=== PATIENT | male | born 1985 | race Caucasian/White ===

== ENCOUNTER 2022-11-05 22:31 | Observation (INO) ==
[2022-11-05] MEDS ORDERED: ONDANSETRON INJ 2 MG/ML 2 ML VIAL ONE ×2 (22:52→23:34)
[2022-11-05] MEDS ORDERED: LORazepam 2 MG/1 ML VIAL ONE (22:59)
[2022-11-05 23:03] LABS: iSTAT Creatinine 0.9 mg/dl (0.6-1.3); iSTAT Hemoglobin 15.6 g/dl (14.0-18.0); iSTAT Ionized Calcium 0.96 mmol/l (1.12-1.32); iSTAT Potassium 3.1 mmol/L (3.3-5.0)
[2022-11-05 23:32] LABS: Basophils # (auto) 0.01 K/uL (0-0.2); Basophils % (auto) 0.2 %; Eosinophils # (auto) 0.07 K/uL (0-0.50); Eosinophils % (auto) 1.3 %; Hematocrit (blood only) 44.8 % (42.0-52.0); Hemoglobin 15.9 g/dl (14.0-18.0); Immature Granulocytes # (auto) 0.01 K/uL (0.01-0.20); Immature Granulocytes % (auto) 0.2 %; Lymphocytes # (auto) 2.59 K/uL (1.2-3.4); Lymphocytes % (auto) 47.9 %; Mean Corpuscular Hemoglobin 30.3 pg (25.0-34.0); Mean Corpuscular Hgb Conc 35.5 g/dL (32.0-36.0); Mean Corpuscular Volume 85.5 fL (80.0-100.0); Mean Platelet Volume 11.4 fL (9.4-12.4); Monocytes # (auto) 0.39 K/uL (0.11-0.59); Monocytes % (auto) 7.2 %; Neutrophils # (auto) 2.34 K/uL (1.40-6.50); Neutrophils % (auto) 43.2 %; Platelet Count 158 K/uL (130-400); RDW Standard Deviation 37.6 fL (36.4-46.3); Red Blood Count 5.24 M/uL (4.70-6.10); White Blood Count 5.41 K/ul (4.8-10.8)
[2022-11-05] MEDS ORDERED: HYDROmorphone INJ 0.5 MG/0.5 ML SYR IV STA (23:42)
[2022-11-05] MEDS ORDERED: ONDANSETRON INJ 2 MG/ML 2 ML VIAL IV STA (23:42)
[2022-11-05 23:47] LABS: Albumin Globulin Ratio 1.8 (0.9-2); Albumin Level 4.8 gm/dl (3.4-5.0); Bilirubin,Total 0.9 mg/dl (0.2-1.0); Calcium 9.4 mg/dl (8.6-10.3); Creatinine Clr Calc Pharmacy 118.1 ml/min; Est GFR (African American) 122.8 ml/min; Globulin 2.6 gm/dl (2.5-4.0); Potassium 3.1 mmol/L (3.5-5.1); Total Protein 7.4 gm/dl (6.0-8.3)
--- NOTE | 2022-11-05 23:59 | CT Scan Report ---
Exam(s): CT HEAD Without Contrast EXAM: CT Head Without Intravenous Contrast CLINICAL HISTORY: Reason for exam: altered ms. TECHNIQUE: Axial computed tomography images of the head/brain without intravenous contrast. CTDI is 38.17 mGy and DLP is 624.41 mGy-cm. Automated exposure control was utilized for the study. A dose lowering technique was utilized adhering to the principles of ALARA. COMPARISON: No relevant prior studies available. FINDINGS: Brain: Unremarkable. No hemorrhage. No significant white matter disease. No edema. Ventricles: Unremarkable. No ventriculomegaly. Bones/joints: Unremarkable. No acute fracture. Soft tissues: Unremarkable. Sinuses: Unremarkable as visualized. No acute sinusitis. Mastoid air cells: Unremarkable as visualized. No mastoid effusion. IMPRESSION: Normal head/brain CT. Electronically signed by: Dandre Ward MD 11/05/22 23:57 PM
--- NOTE | 2022-11-06 00:27 | Emergency Department Note ---
Impression & Plan Meningitis Admit to the [facility] ED Provider Note NAME: LUZ ELENA GRADY AGE: 37 SEX: M ARRIVES VIA: Walk-In INFORMANT: Patient ED PROVIDER(S): Shadia Tam DO CHIEF COMPLAINT: Altered mental status PLAN: Disposition: Admit to the [facility] Condition: Guarded MEDICAL DECISION MAKING: This is a 37-year-old male patient who presents to the emergency department with an altered mental status. Patient presented with left leg and arm numbness, slurred speech and then altered mental status. Patient then developed significant headache and photophobia while here in the emergency department. Laboratory studies were essentially unremarkable. He had no leukocytosis or anemia. Glucose was stable. He was slightly hypokalemic. CT scan of the brain was unremarkable. However lumbar puncture revealed significantly elevated white blood cell count and total protein. Gram stain revealed no evidence of organisms but there were white blood cells present. Patient was treated with IV vancomycin prophylactically for meningitis. [facility] care. Triage Nursing notes reviewed and agree with them. Additional history obtained from his is at the bedside Vital Signs: reviewed and remarkable for bradycardia Differential diagnosis: CVA, TIA, conversion disorder, tickborne illness, encephalitis, thyroid ER treatment provided: Cardiac monitoring Twelve-lead EKG IV Ativan IV Zofran IV normal saline IV Compazine IV Dilaudid x2 IV vancomycin Diagnostics interpreted by me: ECG: Normal sinus rhythm at [address] segment elevation or signs of ischemia. No ectopy. Cardiac Monitoring: Sinus bradycardia at 51 Laboratory studies: See below Imaging studies: As per stat rad CT scan of the brain: See report HPI: 37/M arrives for evaluation of altered mental status. Patient presents to the ER after complaining of left leg numbness that traveled to his left arm around 6 PM this evening. He then complained of some weakness in his left thumb. He then became nauseated and had an episode of vomiting. His then noticed some slurred speech. His states that he then seen to be confused. She urged him at that time to come to the hospital but he refused. She states that he was extremely stubborn. She denies that he ever had an episode like this in the past. She became more concerned around 9 PM this evening when he seemed more confused and had increased episodes of vomiting. 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 He is and has children. HOME MEDICATIONS:See list ALLERGIES:See list VITALS:See Below PHYSICAL EXAMINATION: HEENT: Head - normocephalic and atraumatic. Pupils are equal, round, and reactive to light. Extraocular eye muscles are intact and sclera are anicteric. Ears - bilaterally patent canals with noninjected tympanic membranes and no evidence of hemotympanum. Nose - moist nasal mucosa without discharge. Mouth - moist buccal mucosa. Oropharynx is nonerythematous and there is no tonsillar exudate or edema noted. Neck: Supple; no nuchal rigidity or cervical lymphadenopathy Heart: Regular rate and rhythm. There is a normal S1 and S2 with no murmurs, clicks, or gallops appreciated. Lungs: Clear to auscultation bilaterally with no wheezes, rales, or rhonchi. Abdomen: Soft, completely nontender, nondistended, with good bowel sounds. There are no palpable pulsatile masses or hepatosplenomegaly. There is no guarding, rigidity, or rebound noted. Extremities: No evidence of cyanosis, clubbing, or edema. There are easily palpable peripheral pulses. Neuro:The patient is awake but disoriented. Muscle strength is 5/5 in all 4 extremities. The patient has equal machine adjuster helper strength and equal pedal push and pull. There are no cerebellar signs. ED COURSE: Times/Reassessments: 2250 the patient was evaluated in room B3. A complete history and physical was performed. An IV lock was initiated and labs are drawn as above. Patient was given a dose of IV Zofran. Patient received a dose of IV Ativan to facilitate CT scan of the brain. An order was placed for continuous cardiac monitoring. The patient was in a sinus bradycardia at a rate of 51. A twelve-lead EKG was obtained as described above. Patient was bolused with IV normal saline solution. Patient continued with significant nausea and was given a dose of IV Compazine. I kept the patient's abreast of the situation. He was given a dose of IV Dilaudid for the severe headache. He underwent lumbar puncture Lumbar Puncture Indication: Altered mental status. Verbal consent was obtained after the risks and benefits were explained, including but not limited to headache, bleeding/clotting, infection, pain, and bone/joint/nerve damage. At this time, the risks of the procedure are less than the risks of NOT performing the procedure. A time out was taken and the correct patient and site identified. The patient was placed sitting upright over a tray table and the back was prepped with betadine and draped in the standard fashion. The L3 intervertebral space was identified, anesthetized locally with 1% lido alex without epinephrine, and the spinal needle was inserted through the skin with the bevel parallel to the dural fibers. The needle was carefully advanced into the lumbar cistern and 4 tubes of clear CSF was obtained. The stylet was replaced and the needle was removed. A bandaid was placed and the patient was placed in the supine position. The patient tolerated the procedure well and there were no complications. Patient continued to complain of pain and was given a second dose of IV Dilaudid . Once preliminary results returned from the lumbar puncture, the patient was given a dose of IV vancomycin. [facility] for further inpatient care. Shadia Tam, DO Past Med/Surg History Social History Smoking Status: Never smoker Hx Alcohol Use: No Hx Substance Use: No Preferred Language: [place] Communication Ability: Effective Turner Machine Required: No Beliefs That Will Affect Care: None Current Living Situation: Spouse Current Living Situation Comment: split level Other Information That Helps Us Care for You: No Feels Safe at Home: Yes Safety Concerns: Feels Safe At This Time Assistive Devices: None Allergies Allergies Allergy/AdvReac Type Severity Reaction Status Date / Time No Known Allergies Allergy Unverified 11/05/22 23:12 Home Meds Home Medications Medication Instructions Recorded Confirmed acetaminophen 500 mg tablet 1,000 mg PO Q6H PRN .headaches/pain 11/05/22 11/05/22 (Tylenol Extra Strength) aspirin 325 mg tablet 650 mg PO BID PRN .headache/pain 11/05/22 11/05/22 cholecalciferol (vitamin D3) 25 0 mcg PO DAILY 11/05/22 11/05/22 mcg (1,000 unit) tablet (Vitamin D3) multivitamin 1 tab PO DAILY 11/05/22 11/05/22 naproxen sodium 220 mg tablet 220 - 440 mg PO BID PRN 11/05/22 11/05/22 (Aleve) .headache/pain sertraline 50 mg tablet 50 mg PO QAM 11/05/22 11/05/22 Results & Data (ED) Vital Signs Vital Signs - 24 hr 11/05/22 22:55 11/05/22 23:13 11/05/22 23:26 Temperature 36.7 C Temperature Source Temporal Artery Scan Pulse Rate 85 Pulse Rate [Apical] 77 Pulse Rate from SpO2 Sensor Pulse Rhythm Regular Pulse Strength Normal Respiratory Rate 13 15 Respiratory Effort / Characteristics Non-Labored Spontaneous Respiratory Depth Normal Normal Respiratory Pattern Regular Blood Pressure 138/66 Blood Pressure [Left Arm] 133/86 Blood Pressure Mean 90 Blood Pressure Mean [Left Arm] 101 Blood Pressure Position [Left Arm] Pulse Oximetry 99 100 100 Oxygen Delivery Method Room Air Room Air Nasal Cannula Oxygen Flow Rate 4 Sepsis Recent Fever Within 48 Hours No Sepsis New/Unexplained Change in Mental Status No Sepsis Action Taken by Nursing No Action Required 11/05/22 23:32 11/05/22 23:13 11/05/22 23:30 Temperature Temperature Source Pulse Rate 69 65 80 Pulse Rate [Apical] Pulse Rate from SpO2 Sensor 68 Pulse Rhythm Pulse Strength Respiratory Rate 22 15 Respiratory Effort / Characteristics Respiratory Depth Respiratory Pattern Blood Pressure 133/86 126/78 Blood Pressure [Left Arm] Blood Pressure Mean 101 94 Blood Pressure Mean [Left Arm] Blood Pressure Position [Left Arm] Pulse Oximetry 100 Oxygen Delivery Method Oxygen Flow Rate Sepsis Recent Fever Within 48 Hours Sepsis New/Unexplained Change in Mental Status Sepsis Action Taken by Nursing 11/06/22 00:00 11/06/22 01:00 11/06/22 00:30 Temperature Temperature Source Pulse Rate 51 L 84 Pulse Rate [Apical] 76 Pulse Rate from SpO2 Sensor 52 L 80 Pulse Rhythm Pulse Strength Respiratory Rate 14 15 14 Respiratory Effort / Characteristics Respiratory Depth Normal Respiratory Pattern Blood Pressure 120/65 132/78 Blood Pressure [Left Arm] 124/74 Blood Pressure Mean 83 96 Blood Pressure Mean [Left Arm] 90 Blood Pressure Position [Left Arm] Pulse Oximetry 100 96 99 Oxygen Delivery Method Nasal Cannula Room Air Oxygen Flow Rate 4 Sepsis Recent Fever Within 48 Hours Sepsis New/Unexplained Change in Mental Status Sepsis Action Taken by Nursing 11/06/22 01:00 11/06/22 01:30 11/06/22 01:55 Temperature Temperature Source Pulse Rate 70 67 72 Pulse Rate [Apical] Pulse Rate from SpO2 Sensor 70 67 70 Pulse Rhythm Pulse Strength Respiratory Rate 15 17 20 Respiratory Effort / Characteristics Respiratory Depth Respiratory Pattern Blood Pressure 124/74 129/72 118/78 Blood Pressure [Left Arm] Blood Pressure Mean 90 91 91 Blood Pressure Mean [Left Arm] Blood Pressure Position [Left Arm] Pulse Oximetry 99 96 95 Oxygen Delivery Method Oxygen Flow Rate Sepsis Recent Fever Within 48 Hours Sepsis New/Unexplained Change in Mental Status Sepsis Action Taken by Nursing 11/06/22 03:24 11/06/22 03:25 11/06/22 03:24 Temperature Temperature Source Pulse Rate 78 Pulse Rate [Apical] 87 Pulse Rate from SpO2 Sensor Pulse Rhythm Pulse Strength Respiratory Rate 18 Respiratory Effort / Characteristics Respiratory Depth Respiratory Pattern Blood Pressure 109/54 L Blood Pressure [Left Arm] 109/54 L Blood Pressure Mean 72 Blood Pressure Mean [Left Arm] 72 Blood Pressure Position [Left Arm] Lying Pulse Oximetry 92 Oxygen Delivery Method Room Air Oxygen Flow Rate Sepsis Recent Fever Within 48 Hours Sepsis New/Unexplained Change in Mental Status Sepsis Action Taken by Nursing 11/06/22 03:24 Temperature Temperature Source Pulse Rate 84 Pulse Rate [Apical] Pulse Rate from SpO2 Sensor Pulse Rhythm Pulse Strength Respiratory Rate 19 Respiratory Effort / Characteristics Respiratory Depth Respiratory Pattern Blood Pressure Blood Pressure [Left Arm] Blood Pressure Mean Blood Pressure Mean [Left Arm] Blood Pressure Position [Left Arm] Pulse Oximetry 97 Oxygen Delivery Method Room Air Oxygen Flow Rate Sepsis Recent Fever Within 48 Hours Sepsis New/Unexplained Change in Mental Status Sepsis Action Taken by Nursing Laboratory Data 11/05/22 22:41 11/05/22 22:41 Lab Results 11/05/22 11/05/22 11/05/22 Range/Units 22:41 22:41 22:41 WBC 5.41 (4.8-10.8) K/ul RBC 5.24 (4.70-6.10) M/uL Hgb 15.9 (14.0-18.0) g/dl POC Hgb (14.0-18.0) g/dl Hct 44.8 (42.0-52.0) % POC Hct (42-52) % MCV 85.5 (80.0-100.0) fL MCH 30.3 (25.0-34.0) pg MCHC 35.5 (32.0-36.0) g/dL RDW Std Deviation 37.6 (36.4-46.3) fL RDW Coeff of Rosita 12.0 (11.5-14.5) % Plt Count 158 (130-400) K/uL MPV 11.4 (9.4-12.4) fL Immature Gran % (Auto) 0.2 % Neut % (Auto) 43.2 % Lymph % (Auto) 47.9 % [place] % (Auto) 7.2 % Eos % (Auto) 1.3 % Baso % (Auto) 0.2 % Neut # (Auto) 2.34 (1.40-6.50) K/uL Lymph # (Auto) 2.59 (1.2-3.4) K/uL [place] # (Auto) 0.39 (0.11-0.59) K/uL Eos # (Auto) 0.07 (0-0.50) K/uL Baso # (Auto) 0.01 (0-0.2) K/uL Immature Gran # (Auto) 0.01 (0.01-0.20) K/uL POC Sodium (135-144) mmol/L Sodium 140 (136-145) mmol/L POC Potassium (3.3-5.0) mmol/L Potassium 3.1 L (3.5-5.1) mmol/L POC Chloride (101-112) mmol/L Chloride 104 (98-107) mmol/L Carbon Dioxide 24 (21-32) mmol/L POC Total CO2 (24-31) mmol/L Anion Gap 12 H (3-11) POC Anion Gap (16-25) mmol/L POC BUN (7-18) mg/dl BUN 13 (6-23) mg/dl Creatinine 0.93 (0.6-1.4) mg/dl POC Creatinine (0.6-1.3) mg/dl Est Cr Clr Drug Dosing 118.1 ml/min Est GFR ( Amer) 122.8 ml/min Est GFR (Non-Af Amer) 106.0 ml/min BUN/Creatinine Ratio 14.0 (10-20) Glucose 128 H (70-99(Fasting)) mg/dl POC Glucose (70-99) mg/dl POC Glucose (other) (70-99) mg/dl Calcium 9.4 (8.6-10.3) mg/dl POC Ioniz Calcium Susy (1.12-1.32) mmol/l Total Bilirubin 0.9 (0.2-1.0) mg/dl AST 20 (13-39) U/L ALT 21 (7-52) U/L Alkaline Phosphatase 45 (34-104) U/L Total Protein 7.4 (6.0-8.3) gm/dl Albumin 4.8 (3.4-5.0) gm/dl Globulin 2.6 (2.5-4.0) gm/dl Albumin/Globulin Ratio 1.8 (0.9-2) TSH (0.300-4.500) uIu/ml Fluid Comment CSF Appearance CSF Color Xanthrochromic CSF WBC (0-5) CSF RBC (0-) CSF Cell Count Tube # CSF Mononuclear WBCs % % CSF Polynuclear WBCs % % CSF Chemistry Tube # CSF Glucose (40-70) mg/dl CSF Total Protein (15-45) mg/dl CSF C.neoform/gat PCR (NotDetected) CSF CMV DNA (PCR) (NotDetected) CSF Enterovirus (PCR) (NotDetected) CSF E. coli K1 (PCR) (NotDetected) CSF H. influenzae (PCR) (NotDetected) CSF HSV I (PCR) (NotDetected) CSF HSV II (PCR) (NotDetected) CSF HHV 6 (PCR) (NotDetected) CSF L.monocytogenes PCR (NotDetected) CSF N. meningitidis PCR (NotDetected) CSF Parechovirus (PCR) (NotDetected) CSF S. agalactiae (PCR) (NotDetected) CSF S. pneumoniae (PCR) (NotDetected) CSF VZV DNA (PCR) (NotDetected) Ethyl Alcohol mg/dL (<10.0) mg/dl Lyme Disease IgG Ab Negative (Negative) Lyme Disease IgM Ab Negative (Negative) SARS-CoV-2, RNA, NAAT (NEGATIVE) 11/05/22 11/05/22 11/05/22 Range/Units 22:41 22:41 22:47 WBC (4.8-10.8) K/ul RBC (4.70-6.10) M/uL Hgb (14.0-18.0) g/dl POC Hgb (14.0-18.0) g/dl Hct (42.0-52.0) % POC Hct (42-52) % MCV (80.0-100.0) fL MCH (25.0-34.0) pg MCHC (32.0-36.0) g/dL RDW Std Deviation (36.4-46.3) fL RDW Coeff of Rosita (11.5-14.5) % Plt Count (130-400) K/uL MPV (9.4-12.4) fL Immature Gran % (Auto) % Neut % (Auto) % Lymph % (Auto) % [place] % (Auto) % Eos % (Auto) % Baso % (Auto) % Neut # (Auto) (1.40-6.50) K/uL Lymph # (Auto) (1.2-3.4) K/uL [place] # (Auto) (0.11-0.59) K/uL Eos # (Auto) (0-0.50) K/uL Baso # (Auto) (0-0.2) K/uL Immature Gran # (Auto) (0.01-0.20) K/uL POC Sodium (135-144) mmol/L Sodium (136-145) mmol/L POC Potassium (3.3-5.0) mmol/L Potassium (3.5-5.1) mmol/L POC Chloride (101-112) mmol/L Chloride (98-107) mmol/L Carbon Dioxide (21-32) mmol/L POC Total CO2 (24-31) mmol/L Anion Gap (3-11) POC Anion Gap (16-25) mmol/L POC BUN (7-18) mg/dl BUN (6-23) mg/dl Creatinine (0.6-1.4) mg/dl POC Creatinine (0.6-1.3) mg/dl Est Cr Clr Drug Dosing ml/min Est GFR ( Amer) ml/min Est GFR (Non-Af Amer) ml/min BUN/Creatinine Ratio (10-20) Glucose (70-99(Fasting)) mg/dl POC Glucose 122 H (70-99) mg/dl POC Glucose (other) (70-99) mg/dl Calcium (8.6-10.3) mg/dl POC Ioniz Calcium Susy (1.12-1.32) mmol/l Total Bilirubin (0.2-1.0) mg/dl AST (13-39) U/L ALT (7-52) U/L Alkaline Phosphatase (34-104) U/L Total Protein (6.0-8.3) gm/dl Albumin (3.4-5.0) gm/dl Globulin (2.5-4.0) gm/dl Albumin/Globulin Ratio (0.9-2) TSH 2.502 (0.300-4.500) uIu/ml Fluid Comment CSF Appearance CSF Color Xanthrochromic CSF WBC (0-5) CSF RBC (0-) CSF Cell Count Tube # CSF Mononuclear WBCs % % CSF Polynuclear WBCs % % CSF Chemistry Tube # CSF Glucose (40-70) mg/dl CSF Total Protein (15-45) mg/dl CSF C.neoform/gat PCR (NotDetected) CSF CMV DNA (PCR) (NotDetected) CSF Enterovirus (PCR) (NotDetected) CSF E. coli K1 (PCR) (NotDetected) CSF H. influenzae (PCR) (NotDetected) CSF HSV I (PCR) (NotDetected) CSF HSV II (PCR) (NotDetected) CSF HHV 6 (PCR) (NotDetected) CSF L.monocytogenes PCR (NotDetected) CSF N. meningitidis PCR (NotDetected) CSF Parechovirus (PCR) (NotDetected) CSF S. agalactiae (PCR) (NotDetected) CSF S. pneumoniae (PCR) (NotDetected) CSF VZV DNA (PCR) (NotDetected) Ethyl Alcohol mg/dL < 10.0 (<10.0) mg/dl Lyme Disease IgG Ab (Negative) Lyme Disease IgM Ab (Negative) SARS-CoV-2, RNA, NAAT (NEGATIVE) 11/05/22 11/06/22 11/06/22 Range/Units 22:51 01:50 01:50 WBC (4.8-10.8) K/ul RBC (4.70-6.10) M/uL Hgb (14.0-18.0) g/dl POC Hgb 15.6 (14.0-18.0) g/dl Hct (42.0-52.0) % POC Hct 46 (42-52) % MCV (80.0-100.0) fL MCH (25.0-34.0) pg MCHC (32.0-36.0) g/dL RDW Std Deviation (36.4-46.3) fL RDW Coeff of Rosita (11.5-14.5) % Plt Count (130-400) K/uL MPV (9.4-12.4) fL Immature Gran % (Auto) % Neut % (Auto) % Lymph % (Auto) % [place] % (Auto) % Eos % (Auto) % Baso % (Auto) % Neut # (Auto) (1.40-6.50) K/uL Lymph # (Auto) (1.2-3.4) K/uL [place] # (Auto) (0.11-0.59) K/uL Eos # (Auto) (0-0.50) K/uL Baso # (Auto) (0-0.2) K/uL Immature Gran # (Auto) (0.01-0.20) K/uL POC Sodium 141 (135-144) mmol/L Sodium (136-145) mmol/L POC Potassium 3.1 L (3.3-5.0) mmol/L Potassium (3.5-5.1) mmol/L POC Chloride 103 (101-112) mmol/L Chloride (98-107) mmol/L Carbon Dioxide (21-32) mmol/L POC Total CO2 23 L (24-31) mmol/L Anion Gap (3-11) POC Anion Gap 20.0 (16-25) mmol/L POC BUN 12 (7-18) mg/dl BUN (6-23) mg/dl Creatinine (0.6-1.4) mg/dl POC Creatinine 0.9 (0.6-1.3) mg/dl Est Cr Clr Drug Dosing ml/min Est GFR ( Amer) ml/min Est GFR (Non-Af Amer) ml/min BUN/Creatinine Ratio (10-20) Glucose (70-99(Fasting)) mg/dl POC Glucose (70-99) mg/dl POC Glucose (other) 133 H (70-99) mg/dl Calcium (8.6-10.3) mg/dl POC Ioniz Calcium Susy 0.96 L (1.12-1.32) mmol/l Total Bilirubin (0.2-1.0) mg/dl AST (13-39) U/L ALT (7-52) U/L Alkaline Phosphatase (34-104) U/L Total Protein (6.0-8.3) gm/dl Albumin (3.4-5.0) gm/dl Globulin (2.5-4.0) gm/dl Albumin/Globulin Ratio (0.9-2) TSH (0.300-4.500) uIu/ml Fluid Comment CSF Appearance Clear CSF Color Colorless Xanthrochromic No xanthochromia CSF WBC 162 H* (0-5) CSF RBC 3 (0-) CSF Cell Count Tube # 3 CSF Mononuclear WBCs % 100 % CSF Polynuclear WBCs % 0 % CSF Chemistry Tube # CSF Glucose (40-70) mg/dl CSF Total Protein (15-45) mg/dl CSF C.neoform/gat PCR Not Detected (NotDetected) CSF CMV DNA (PCR) Not Detected (NotDetected) CSF Enterovirus (PCR) Not Detected (NotDetected) CSF E. coli K1 (PCR) Not Detected (NotDetected) CSF H. influenzae (PCR) Not Detected (NotDetected) CSF HSV I (PCR) Not Detected (NotDetected) CSF HSV II (PCR) Not Detected (NotDetected) CSF HHV 6 (PCR) Not Detected (NotDetected) CSF L.monocytogenes PCR Not Detected (NotDetected) CSF N. meningitidis PCR Not Detected (NotDetected) CSF Parechovirus (PCR) Not Detected (NotDetected) CSF S. agalactiae (PCR) Not Detected (NotDetected) CSF S. pneumoniae (PCR) Not Detected (NotDetected) CSF VZV DNA (PCR) Not Detected (NotDetected) Ethyl Alcohol mg/dL (<10.0) mg/dl Lyme Disease IgG Ab (Negative) Lyme Disease IgM Ab (Negative) SARS-CoV-2, RNA, NAAT (NEGATIVE) 11/06/22 11/06/22 Range/Units 01:50 04:19 WBC (4.8-10.8) K/ul RBC (4.70-6.10) M/uL Hgb (14.0-18.0) g/dl POC Hgb (14.0-18.0) g/dl Hct (42.0-52.0) % POC Hct (42-52) % MCV (80.0-100.0) fL MCH (25.0-34.0) pg MCHC (32.0-36.0) g/dL RDW Std Deviation (36.4-46.3) fL RDW Coeff of Rosita (11.5-14.5) % Plt Count (130-400) K/uL MPV (9.4-12.4) fL Immature Gran % (Auto) % Neut % (Auto) % Lymph % (Auto) % [place] % (Auto) % Eos % (Auto) % Baso % (Auto) % Neut # (Auto) (1.40-6.50) K/uL Lymph # (Auto) (1.2-3.4) K/uL [place] # (Auto) (0.11-0.59) K/uL Eos # (Auto) (0-0.50) K/uL Baso # (Auto) (0-0.2) K/uL Immature Gran # (Auto) (0.01-0.20) K/uL POC Sodium (135-144) mmol/L Sodium (136-145) mmol/L POC Potassium (3.3-5.0) mmol/L Potassium (3.5-5.1) mmol/L POC Chloride (101-112) mmol/L Chloride (98-107) mmol/L Carbon Dioxide (21-32) mmol/L POC Total CO2 (24-31) mmol/L Anion Gap (3-11) POC Anion Gap (16-25) mmol/L POC BUN (7-18) mg/dl BUN (6-23) mg/dl Creatinine (0.6-1.4) mg/dl POC Creatinine (0.6-1.3) mg/dl Est Cr Clr Drug Dosing ml/min Est GFR ( Amer) ml/min Est GFR (Non-Af Amer) ml/min BUN/Creatinine Ratio (10-20) Glucose (70-99(Fasting)) mg/dl POC Glucose (70-99) mg/dl POC Glucose (other) (70-99) mg/dl Calcium (8.6-10.3) mg/dl POC Ioniz Calcium Susy (1.12-1.32) mmol/l Total Bilirubin (0.2-1.0) mg/dl AST (13-39) U/L ALT (7-52) U/L Alkaline Phosphatase (34-104) U/L Total Protein (6.0-8.3) gm/dl Albumin (3.4-5.0) gm/dl Globulin (2.5-4.0) gm/dl Albumin/Globulin Ratio (0.9-2) TSH (0.300-4.500) uIu/ml Fluid Comment CSF Appearance CSF Color Xanthrochromic CSF WBC (0-5) CSF RBC (0-) CSF Cell Count Tube # CSF Mononuclear WBCs % % CSF Polynuclear WBCs % % CSF Chemistry Tube # 1 CSF Glucose 65 (40-70) mg/dl CSF Total Protein 102.3 H (15-45) mg/dl CSF C.neoform/gat PCR (NotDetected) CSF CMV DNA (PCR) (NotDetected) CSF Enterovirus (PCR) (NotDetected) CSF E. coli K1 (PCR) (NotDetected) CSF H. influenzae (PCR) (NotDetected) CSF HSV I (PCR) (NotDetected) CSF HSV II (PCR) (NotDetected) CSF HHV 6 (PCR) (NotDetected) CSF L.monocytogenes PCR (NotDetected) CSF N. meningitidis PCR (NotDetected) CSF Parechovirus (PCR) (NotDetected) CSF S. agalactiae (PCR) (NotDetected) CSF S. pneumoniae (PCR) (NotDetected) CSF VZV DNA (PCR) (NotDetected) Ethyl Alcohol mg/dL (<10.0) mg/dl Lyme Disease IgG Ab (Negative) Lyme Disease IgM Ab (Negative) SARS-CoV-2, RNA, NAAT NEGATIVE (NEGATIVE) Administered Medications Acyclovir Sodium 820 mg/ (Dextrose) 266.4 mls @ 250 mls/hr IV Q8H [facility]; Protocol Stop: 11/16/22 06:29 Last Admin: 11/06/22 06:26 Dose: 250 mls/hr Documented By: CKW Sodium Chloride (Nss 1000ml) 1,000 mls @ 125 mls/hr IV .Q8H [facility] Stop: 12/06/22 05:26 Last Admin: 07/11/23 06:32 Dose: 125 mls/hr Documented By: NILSON Ceftriaxone Sodium 2,000 mg/ (Dextrose) 70 mls @ 100 mls/hr IV Q12H [facility]; Protocol Stop: 11/16/22 05:59 Last Admin: 11/06/22 06:27 Dose: 100 mls/hr Documented By: NILSON Discontinued Medications Enoxaparin Sodium (Enoxaparin Inj 40 Mg/0.4 Ml Syr) 40 mg SQ Q24H [facility] Stop: 12/06/22 05:26 Last Admin: 11/06/22 06:52 Dose: Not Given Documented By: FERNANDO Gadobutrol (Gadobutrol 65ml Vial) 8 ml IV ONCE ONE Stop: 11/06/22 03:13 Last Admin: 11/06/22 03:13 Dose: 8 ml Documented By: WAYNE Hydromorphone HCl (Hydromorphone Inj 0.5 Mg/0.5 Ml Syr) 0.5 mg IV NOW STA Stop: 11/05/22 23:43 Last Admin: 11/05/22 23:53 Dose: 0.5 mg Documented By: KUSUM Prochlorperazine 5 mg/ Syringe 5 mls @ 5 mls/min IV ONE ONE Stop: 11/06/22 01:17 Last Admin: 11/06/22 01:21 Dose: 5 mls/min Documented By: KUSUM Vancomycin HCl 2,000 mg/ (Sodium Chloride) 540 mls @ 200 mls/hr IV NOW ONE Stop: 11/06/22 05:38 Last Admin: 11/06/22 03:38 Dose: 200 mls/hr Documented By: Ketorolac Tromethamine (Ketorolac Tromethamine 15 Mg/Ml Vial) 15 mg IV NOW ONE Stop: 11/06/22 04:32 Last Admin: 11/06/22 05:04 Dose: 15 mg Documented By: Lorazepam (Lorazepam 2 Mg/1 Ml Vial) Confirm Administered Dose 2 mg .ROUTE .STK- MED ONE Stop: 11/05/22 23:00 Last Admin: 11/05/22 23:16 Dose: 2 mg Documented By: ONEIL Ondansetron HCl (Ondansetron Inj 2 Mg/Ml 2 Ml Vial) Confirm Administered Dose 4 mg .ROUTE .STK-MED ONE Stop: 11/05/22 22:53 Last Admin: 11/05/22 23:53 Dose: Not Given Documented By: KUSUM Ondansetron HCl (Ondansetron Inj 2 Mg/Ml 2 Ml Vial) Confirm Administered Dose 4 mg .ROUTE .STK-MED ONE Stop: 11/05/22 23:35 Last Admin: 11/06/22 01:05 Dose: Not Given Documented By: WILNER Ondansetron HCl (Ondansetron Inj 2 Mg/Ml 2 Ml Vial) 4 mg IV NOW STA Stop: 11/05/22 23:43 Last Admin: 11/05/22 23:44 Dose: 4 mg Documented By: KUSUM Prochlorperazine (Prochlorperazine 5 Mg/Ml 2 Ml Vial) Confirm Administered Dose 10 mg .ROUTE .ST[place]virago-MED ONE Stop: 11/06/22 01:20 Last Admin: 11/06/22 01:24 Dose: Not Given Documented By: KUSUM Imaging Data Radiologist's Impression: Head CT 11/05/22 23:04 Exam(s): CT HEAD Without Contrast EXAM: CT Head Without Intravenous Contrast CLINICAL HISTORY: Reason for exam: altered ms. TECHNIQUE: Axial computed tomography images of the head/brain without intravenous contrast. CTDI is 38.17 mGy and DLP is 624.41 mGy-cm. Automated exposure control was utilized for the study. A dose lowering technique was utilized adhering to the principles of ALARA. COMPARISON: No relevant prior studies available. FINDINGS: Brain: Unremarkable. No hemorrhage. No significant white matter disease. No edema. Ventricles: Unremarkable. No ventriculomegaly. Bones/joints: Unremarkable. No acute fracture. Soft tissues: Unremarkable. Sinuses: Unremarkable as visualized. No acute sinusitis. Mastoid air cells: Unremarkable as visualized. No mastoid effusion. IMPRESSION: Normal head/brain CT. Electronically signed by: Dandre Ward MD 11/05/22 23:57 PM Brain MRI 11/06/22 01:58 Exam(s): MRI HEAD W/WO Contrast IV Amt: 8cc gadavist EXAM: MR Head Without and With Intravenous Contrast CLINICAL HISTORY: Reason for exam: stroke eval - altered ms. TECHNIQUE: Magnetic resonance images of the head/brain without and with intravenous contrast in multiple planes. CONTRAST: Patient received 8cc Gadavist of IV contrast COMPARISON: CT head from November 05, 2022 FINDINGS: Brain: Unremarkable. No mass. No hemorrhage. No acute infarct. No areas of abnormal enhancement. Ventricles: Unremarkable. No ventriculomegaly. Bones/joints: Unremarkable. Sinuses: Unremarkable as visualized. No acute sinusitis. Mastoid air cells: Unremarkable as visualized. No mastoid effusion. Orbits: Unremarkable as visualized. IMPRESSION: Normal head/brain MRI. Electronically signed by: Dandre Ward MD 11/06/22 04:21 AM Discharge Plan Visit Data Chief Complaint: Stroke/CVA Symptoms Stated Complaint: NUMBNESS,SLURRY SPEECH,BLURRY VISION ED Provider: Shadia Tam Discharge Problem: Meningitis Patient Disposition: Admitted As Inpatient Discharge Instructions Interventions: ED Discharge Assessment Last Done: 11/06/22 05:09
[2022-11-06 00:41] LABS: Lyme Ab IgG w/WB Rflx Negative (Negative); Lyme Ab IgM w/WB Rflx Negative (Negative)
[2022-11-06] MEDS ORDERED: PROCHLORPERAZINE 5 MG in SYRINGE 4 ML IV ONE (01:16)
[2022-11-06] MEDS ORDERED: PROCHLORPERAZINE 5 MG/ML 2 ML VIAL ONE (01:19)
[2022-11-06 02:51] LABS: Appearance CSF Clear; CSF Count Tube # 3; CSF Xanthrochromic No xanthochromia; Color CSF Colorless
[2022-11-06 02:54] LABS: Total Protein CSF 102.3 mg/dl (15-45)
[2022-11-06] MEDS ORDERED: VANCOMYCIN HCL 2,000 MG in SODIUM CHLORIDE 0.9% 500 ML IV ONE (02:57)
[2022-11-06] MEDS ORDERED: VANCOMYCIN CONSULT ACTIVE PRN (02:57)
[2022-11-06] MEDS ORDERED: GADOBUTROL 65ML VIAL IV ONE (03:12)
[2022-11-06 03:36] LABS: Cryptococcus neoformans/ga PCR Not Detected (NotDetected); Cytomegalovirus PCR Not Detected (NotDetected); Enterovirus PCR Not Detected (NotDetected); Escherichia coli K1 PCR Not Detected (NotDetected); Haemophilius influenzae PCR Not Detected (NotDetected); Herpes Simplex Virus 1 PCR Not Detected (NotDetected); Herpes Simplex Virus 2 PCR Not Detected (NotDetected); Human Herpes Virus 6 PCR Not Detected (NotDetected); Human Parechovirus PCR Not Detected (NotDetected); Listeria monocytogenes PCR Not Detected (NotDetected); Neisseria meningitidis PCR Not Detected (NotDetected); Streptococcus agalactiae PCR Not Detected (NotDetected); Streptococcus pneumoniae PCR Not Detected (NotDetected); Varicella Zoster Virus PCR Not Detected (NotDetected)
--- NOTE | 2022-11-06 04:22 | Magnetic Resonance Report ---
Exam(s): MRI HEAD W/WO Contrast IV Amt: 8cc gadavist EXAM: MR Head Without and With Intravenous Contrast CLINICAL HISTORY: Reason for exam: stroke eval - altered ms. TECHNIQUE: Magnetic resonance images of the head/brain without and with intravenous contrast in multiple planes. CONTRAST: Patient received 8cc Gadavist of IV contrast COMPARISON: CT head from November 05, 2022 FINDINGS: Brain: Unremarkable. No mass. No hemorrhage. No acute infarct. No areas of abnormal enhancement. Ventricles: Unremarkable. No ventriculomegaly. Bones/joints: Unremarkable. Sinuses: Unremarkable as visualized. No acute sinusitis. Mastoid air cells: Unremarkable as visualized. No mastoid effusion. Orbits: Unremarkable as visualized. IMPRESSION: Normal head/brain MRI. Electronically signed by: Dandre Ward MD 11/06/22 04:21 AM
[2022-11-06] MEDS ORDERED: KETOROLAC TROMETHAMINE 15 MG/ML VIAL IV ONE (04:31)
[2022-11-06 04:39] LABS: Mononuclear WBC CSF Manual 100 %; Polynuclear WBC CSF Manual 0 %
--- NOTE | 2022-11-06 04:49 | History & Physical Report ---
Date of Service November 06, 2022 Assessment & Plan (1) Meningitis: Plan: 37-year-old male with past medical history significant for BETZAIDA presents with severe headache, nausea, some numbness in the left side extremities which improved now, photophobia LP consistent with meningitis. Meningitis CSF WBC 162, CSF total protein 102. Lyme screen negative Most likely viral meningitis Isolation precautions Supportive care Empiric IV antibiotics with IV Vanco IV Rocephin and IV acyclovir CT head and MRI brain unremarkable Neurology and ID consult BETZAIDA Continue Zoloft DVT prophylaxis Lovenox Disposition Med telemetry History of Present Illness Chief Complaint: Headache and nausea and left-sided numbness Primary Care Provider: NO PCP 37-year-old male with past medical significant for BETZAIDA presents with headache nausea and left-sided numbness. Around 6:00 PM patient's symptoms of numbness in the left side initially in the left leg and then spreading into the upper extremity. Around 9 PM as per patient was having some slurred speech, confusion, nausea vomiting, no fevers, headaches were decided to come to the ER. Patient is currently having photophobia. Somewhat restless. Says has some neck stiffness. No earache or runny nose or sore throat or cough. No difficulty swallowing. As per he ate his dinner at 9 PM. No chest pain or shortness of breath. No abdominal pain. Normal bowel and bladder movements. Past medical history as mentioned above. Past surgical history none. Allergies Allergy/AdvReac Type Severity Reaction Status Date / Time No Known Allergies Allergy Unverified 11/05/22 23:12 Home Medications Medication Instructions Recorded Confirmed Type acetaminophen 500 mg tablet 1,000 mg PO Q6H PRN .headaches/pain 11/05/22 11/05/22 History (Tylenol Extra Strength) aspirin 325 mg tablet 650 mg PO BID PRN .headache/pain 11/05/22 11/05/22 History cholecalciferol (vitamin D3) 25 0 mcg PO DAILY 11/05/22 11/05/22 History mcg (1,000 unit) tablet (Vitamin D3) multivitamin 1 tab PO DAILY 11/05/22 11/05/22 History naproxen sodium 220 mg tablet 220 - 440 mg PO BID PRN 11/05/22 11/05/22 History (Aleve) .headache/pain sertraline 50 mg tablet 50 mg PO QAM 11/05/22 11/05/22 History Past Med/Surg History Social History Smoking Status: Never smoker Preferred Language: Urugu[place] Feels Safe at Home: Yes Review of Systems Review of Systems: All systems reviewed & are unremarkable except as noted in Subjective Physical Exam Physical Exam: NEEDS EDITING General- adult Head- atraumatic Eyes- PERRL, Photophobia present ENT- oropharynx clear Neck- No neck masses seen Lungs- clear to auscultation and percussion Heart- regular rhythm; no murmur, no gallop, no rub appreciated Abdomen- normal bowel sounds, soft, nontender, no masses or hepatosplenomegaly Extremities- no pretibial edema, no erythema. Neuro- alert, oriented x 3; PERRL, EOMI; no facial palsy; no dysarthria;obesy commands, moving extremities Skin- warm & dry Results & Data Results & Data Vital Signs (Past 12 Hours) Vital Signs Temp Pulse Pulse Resp BP BP Pulse Ox 11/06/22 03:24 84 19 97 11/06/22 03:24 109/54 L 11/06/22 03:25 78 11/06/22 03:24 87 18 109/54 L 92 11/06/22 01:55 72 20 118/78 95 11/06/22 01:30 67 17 129/72 96 11/06/22 01:00 70 15 124/74 99 11/06/22 00:30 84 14 132/78 99 11/06/22 01:00 76 15 124/74 96 11/06/22 00:00 51 L 14 120/65 100 11/05/22 23:30 80 15 126/78 11/05/22 23:13 65 22 133/86 100 11/05/22 23:32 69 11/05/22 23:26 100 11/05/22 23:13 77 15 133/86 100 11/05/22 22:55 36.7 C 85 13 138/66 99 O2 Del Method O2 Flow Rate 11/06/22 03:24 Room Air 11/06/22 03:24 11/06/22 03:25 11/06/22 03:24 Room Air 11/06/22 01:55 11/06/22 01:30 11/06/22 01:00 11/06/22 00:30 11/06/22 01:00 Room Air 11/06/22 00:00 Nasal Cannula 4 11/05/22 23:30 11/05/22 23:13 11/05/22 23:32 11/05/22 23:26 Nasal Cannula 4 11/05/22 23:13 Room Air 11/05/22 22:55 Room Air Diagnostic Findings Laboratory Results WBC 5.41 K/ul (4.8-10.8) 11/05/22 22:41 RBC 5.24 M/uL (4.70-6.10) 11/05/22 22:41 Hgb 15.9 g/dl (14.0-18.0) 11/05/22 22:41 POC Hgb 15.6 g/dl (14.0-18.0) 11/05/22 22:51 Hct 44.8 % (42.0-52.0) 11/05/22 22:41 POC Hct 46 % (42-52) 11/05/22 22:51 MCV 85.5 fL (80.0-100.0) 11/05/22 22:41 MCH 30.3 pg (25.0-34.0) 11/05/22 22:41 MCHC 35.5 g/dL (32.0-36.0) 11/05/22 22:41 RDW Std Deviation 37.6 fL (36.4-46.3) 11/05/22 22:41 RDW Coeff of Rosita 12.0 % (11.5-14.5) 11/05/22 22:41 Plt Count 158 K/uL (130-400) 11/05/22 22:41 MPV 11.4 fL (9.4-12.4) 11/05/22 22:41 Immature Gran % (Auto) 0.2 % 11/05/22 22:41 Neut % (Auto) 43.2 % 11/05/22 22:41 Lymph % (Auto) 47.9 % 11/05/22 22:41 Loíza % (Auto) 7.2 % 11/05/22 22:41 Eos % (Auto) 1.3 % 11/05/22 22:41 Baso % (Auto) 0.2 % 11/05/22 22:41 Neut # (Auto) 2.34 K/uL (1.40-6.50) 11/05/22 22:41 Lymph # (Auto) 2.59 K/uL (1.2-3.4) 11/05/22 22:41 Loíza # (Auto) 0.39 K/uL (0.11-0.59) 11/05/22 22:41 Eos # (Auto) 0.07 K/uL (0-0.50) 11/05/22 22:41 Baso # (Auto) 0.01 K/uL (0-0.2) 11/05/22 22:41 Immature Gran # (Auto) 0.01 K/uL (0.01-0.20) 11/05/22 22:41 POC Sodium 141 mmol/L (135-144) 11/05/22 22:51 Sodium 140 mmol/L (136-145) 11/05/22 22:41 POC Potassium 3.1 mmol/L (3.3-5.0) L 11/05/22 22:51 Potassium 3.1 mmol/L (3.5-5.1) L 11/05/22 22:41 POC Chloride 103 mmol/L (101-112) 11/05/22 22:51 Chloride 104 mmol/L (98-107) 11/05/22 22:41 Carbon Dioxide 24 mmol/L (21-32) 11/05/22 22:41 POC Total CO2 23 mmol/L (24-31) L 11/05/22 22:51 Anion Gap 12 (3-11) H 11/05/22 22:41 POC Anion Gap 20.0 mmol/L (16-25) 11/05/22 22:51 POC BUN 12 mg/dl (7-18) 11/05/22 22:51 BUN 13 mg/dl (6-23) 11/05/22 22:41 Creatinine 0.93 mg/dl (0.6-1.4) 11/05/22 22:41 POC Creatinine 0.9 mg/dl (0.6-1.3) 11/05/22 22:51 Est Cr Clr Drug Dosing 118.1 ml/min 11/05/22 22:41 Est GFR ( Amer) 122.8 ml/min 11/05/22 22:41 Est GFR (Non-Af Amer) 106.0 ml/min 11/05/22 22:41 BUN/Creatinine Ratio 14.0 (10-20) 11/05/22 22:41 Glucose 128 mg/dl (70-99(Fasting)) H 11/05/22 22:41 POC Glucose 122 mg/dl (70-99) H 11/05/22 22:47 POC Glucose (other) 133 mg/dl (70-99) H 11/05/22 22:51 Calcium 9.4 mg/dl (8.6-10.3) 11/05/22 22:41 POC Ioniz Calcium Susy 0.96 mmol/l (1.12-1.32) L 11/05/22 22:51 Total Bilirubin 0.9 mg/dl (0.2-1.0) 11/05/22 22:41 AST 20 U/L (13-39) 11/05/22 22:41 ALT 21 U/L (7-52) 11/05/22 22:41 Alkaline Phosphatase 45 U/L (34-104) 11/05/22 22:41 Total Protein 7.4 gm/dl (6.0-8.3) 11/05/22 22:41 Albumin 4.8 gm/dl (3.4-5.0) 11/05/22 22:41 Globulin 2.6 gm/dl (2.5-4.0) 11/05/22 22:41 Albumin/Globulin Ratio 1.8 (0.9-2) 11/05/22 22:41 TSH 2.502 uIu/ml (0.300-4.500) 11/05/22 22:41 Fluid Comment 11/06/22 01:50 CSF Appearance Clear 11/06/22 01:50 CSF Color Colorless 11/06/22 01:50 Xanthrochromic No xanthochromia 11/06/22 01:50 CSF WBC 162 (0-5) H* 11/06/22 01:50 CSF RBC 3 (0-) 11/06/22 01:50 CSF Cell Count Tube # 3 11/06/22 01:50 CSF Mononuclear WBCs % 100 % 11/06/22 01:50 CSF Polynuclear WBCs % 0 % 11/06/22 01:50 CSF Chemistry Tube # 1 11/06/22 01:50 CSF Glucose 65 mg/dl (40-70) 11/06/22 01:50 CSF Total Protein 102.3 mg/dl (15-45) H 11/06/22 01:50 CSF C.neoform/gat PCR Not Detected (NotDetected) 11/06/22 01:50 CSF CMV DNA (PCR) Not Detected (NotDetected) 11/06/22 01:50 CSF Enterovirus (PCR) Not Detected (NotDetected) 11/06/22 01:50 CSF E. coli K1 (PCR) Not Detected (NotDetected) 11/06/22 01:50 CSF H. influenzae (PCR) Not Detected (NotDetected) 11/06/22 01:50 CSF HSV I (PCR) Not Detected (NotDetected) 11/06/22 01:50 CSF HSV II (PCR) Not Detected (NotDetected) 11/06/22 01:50 CSF HHV 6 (PCR) Not Detected (NotDetected) 11/06/22 01:50 CSF L.monocytogenes PCR Not Detected (NotDetected) 11/06/22 01:50 CSF N. meningitidis PCR Not Detected (NotDetected) 11/06/22 01:50 CSF Parechovirus (PCR) Not Detected (NotDetected) 11/06/22 01:50 CSF S. agalactiae (PCR) Not Detected (NotDetected) 11/06/22 01:50 CSF S. pneumoniae (PCR) Not Detected (NotDetected) 11/06/22 01:50 CSF VZV DNA (PCR) Not Detected (NotDetected) 11/06/22 01:50 Ethyl Alcohol mg/dL < 10.0 mg/dl (<10.0) 11/05/22 22:41 Lyme Disease IgG Ab Negative (Negative) 11/05/22 22:41 Lyme Disease IgM Ab Negative (Negative) 11/05/22 22:41 SARS-CoV-2, RNA, NAAT NEGATIVE (NEGATIVE) 11/06/22 04:[address] 11/05/22 23:04 Exam(s): CT HEAD Without Contrast EXAM: CT Head Without Intravenous Contrast CLINICAL HISTORY: Reason for exam: altered ms. TECHNIQUE: Axial computed tomography images of the head/brain without intravenous contrast. CTDI is 38.17 mGy and DLP is 624.41 mGy-cm. Automated exposure control was utilized for the study. A dose lowering technique was utilized adhering to the principles of ALARA. COMPARISON: No relevant prior studies available. FINDINGS: Brain: Unremarkable. No hemorrhage. No significant white matter disease. No edema. Ventricles: Unremarkable. No ventriculomegaly. Bones/joints: Unremarkable. No acute fracture. Soft tissues: Unremarkable. Sinuses: Unremarkable as visualized. No acute sinusitis. Mastoid air cells: Unremarkable as visualized. No mastoid effusion. IMPRESSION: Normal head/brain CT. Electronically signed by: Dandre Ward MD 11/05/22 23:57 PM Brain MRI 11/06/22 01:58 Exam(s): MRI HEAD W/WO Contrast IV Amt: 8cc gadavist EXAM: MR Head Without and With Intravenous Contrast CLINICAL HISTORY: Reason for exam: stroke eval - altered ms. TECHNIQUE: Magnetic resonance images of the head/brain without and with intravenous contrast in multiple planes. CONTRAST: Patient received 8cc Gadavist of IV contrast COMPARISON: CT head from November 05, 2022 FINDINGS: Brain: Unremarkable. No mass. No hemorrhage. No acute infarct. No areas of abnormal enhancement. Ventricles: Unremarkable. No ventriculomegaly. Bones/joints: Unremarkable. Sinuses: Unremarkable as visualized. No acute sinusitis. Mastoid air cells: Unremarkable as visualized. No mastoid effusion. Orbits: Unremarkable as visualized. IMPRESSION: Normal head/brain MRI. Electronically signed by: Dandre Ward MD 11/06/22 04:21 AM ECG Additional Comments: ECG normal sinus rhythm with rate of 81. Possible left atrial enlargement Code Status & VTE Plan VTE Prophylaxis Plan VTE Prophylaxis will be ordered: Yes
[2022-11-06] MEDS ORDERED: SODIUM CHLORIDE 0.9% 1000ML 1,000 ML IV SCH (05:27)
[2022-11-06] MEDS ORDERED: ONDANSETRON INJ 2 MG/ML 2 ML VIAL IV PRN (05:27)
[2022-11-06] MEDS ORDERED: ENOXAPARIN INJ 40 MG/0.4 ML SYR SQ SCH (05:27)
[2022-11-06] MEDS ORDERED: NITROGLYCERIN SL 0.4 MG/TAB TAB SL PRN (05:27)
[2022-11-06] MEDS ORDERED: ACETAMINOPHEN 1,000 MG/100 ML VIAL IV PRN (05:27)
[2022-11-06] MEDS ORDERED: cefTRIAXone SODIUM 2,000 MG in DEXTROSE 5% 50 ML IV SCH (06:00)
[2022-11-06] MEDS ORDERED: DEXTROSE 5% IV SCH ×2 (06:30→14:00)
[2022-11-06] MEDS ORDERED: ACYCLOVIR SOD IV SCH ×2 (06:30→14:00)
[2022-11-06] MEDS ORDERED: POTASSIUM CHLORIDE CRTAB 20 MEQ TABCR PO STA (08:18)
[2022-11-06] MEDS ORDERED: SERTRALINE HCL 50 MG TABLET PO SCH (09:00)
[2022-11-06] MEDS ORDERED: MULTIVITAMIN TAB PO SCH (09:00)
[2022-11-06 09:12] LABS: Basophils # (auto) 0.03 K/uL (0-0.2); Basophils % (auto) 0.4 %; Eosinophils # (auto) 0.02 K/uL (0-0.50); Eosinophils % (auto) 0.2 %; Hematocrit (blood only) 41.3 % (42.0-52.0); Hemoglobin 14.5 g/dl (14.0-18.0); Immature Granulocytes # (auto) 0.01 K/uL (0.01-0.20); Immature Granulocytes % (auto) 0.1 %; Lymphocytes # (auto) 1.11 K/uL (1.2-3.4); Lymphocytes % (auto) 13.4 %; Mean Corpuscular Hemoglobin 30.3 pg (25.0-34.0); Mean Corpuscular Hgb Conc 35.1 g/dL (32.0-36.0); Mean Corpuscular Volume 86.4 fL (80.0-100.0); Mean Platelet Volume 10.9 fL (9.4-12.4); Monocytes # (auto) 0.48 K/uL (0.11-0.59); Monocytes % (auto) 5.8 %; Neutrophils # (auto) 6.66 K/uL (1.40-6.50); Neutrophils % (auto) 80.1 %; Platelet Count 141 K/uL (130-400); RDW Coefficient of Variation 12.1 % (11.5-14.5); RDW Standard Deviation 38.4 fL (36.4-46.3); Red Blood Count 4.78 M/uL (4.70-6.10); White Blood Count 8.31 K/ul (4.8-10.8)
--- NOTE | 2022-11-06 10:38 | Neurology Consultation ---
Date of Consultation November 06, 2022 Assessment & Plan (1) Meningitis: Patient presents with Left sided numbness found to have 162 WBCs with 100% monos and 104 protein consistent with aseptic or viral meningitis. Do not suspect bacterial or treatable viruses given the negative MRI and his clinical improvement. Defer to ID but suspect abx can be discontinued. We appreciate the consult. Please contact us with any further questions. Telehealth Consultation Telehealth Information Telehealth Information: I performed this visit using a real-time telehealth connection between my location and the patients location ([facility]). After connecting through interactive tele-video, patient was identified by name and date of and/or wristband check.Patient (or authorized healthcare represe ntative) was informed that this was a telemedicine visit and it was being conducted confidentially over secure lines. My office door was closed and no one else was present in the room with me.Patient (or authorized healthcare packaging sales representative) provided consent to proceed with the visit, expressed an understanding of privacy and security of the telemedicine visit, and gave permission to have a hospital packaging sales representative in the room in order to assist with the visit and to conduct portions of the visit, as needed. I informed the patient (or authorized healthcare packaging sales representative) that I reviewed their record and presented the opportunity for them to ask any questions regarding the visit today. The patient agreed to participate. History of Present Illness Reason for Consultation: Meningitis Requesting Physician: Dr. Thorpe Attending Physician: Jessica Thorpe MD History of Present Illness Rory Cee is a 37 yo M presenting with left sided numbness and loss of dex terity in the left hand that began suddenly yesterday. He was noted to also have a mild headache. No subjective fevers, no vision changes or neck pain/stiffness. He has never had anything like this in the past, no history of stroke, no history of meningitis. No recent sick contacts or illnesses. He feels much better this morning, his left sided numbness has subsided. Allergies Allergy/AdvReac Type Severity Reaction Status Date / Time No Known Allergies Allergy Unverified 11/05/22 23:12 Home Medications Medication Instructions Recorded Confirmed Type acetaminophen 500 mg tablet 1,000 mg PO Q6H PRN .headaches/pain 11/05/22 11/05/22 History (Tylenol Extra Strength) aspirin 325 mg tablet 650 mg PO BID PRN .headache/pain 11/05/22 11/05/22 History cholecalciferol (vitamin D3) 25 0 mcg PO DAILY 11/05/22 11/05/22 History mcg (1,000 unit) tablet (Vitamin D3) multivitamin 1 tab PO DAILY 11/05/22 11/05/22 History naproxen sodium 220 mg tablet 220 - 440 mg PO BID PRN 11/05/22 11/05/22 History (Aleve) .headache/pain sertraline 50 mg tablet 50 mg PO QAM 11/05/22 11/05/22 History Patient History Social History Smoking Status: Never smoker Hx Alcohol Use: No Hx Substance Use: No Preferred Language: Czech Communication Ability: Effective Pipe Stem Repairer Required: No Beliefs That Will Affect Care: None Current Living Situation: Spouse Current Living Situation Comment: split level Other Information That Helps Us Care for You: No Feels Safe at Home: Yes Safety Concerns: Feels Safe At This Time Assistive Devices: None Review of Systems +Left sided numbness Physical Exam Neurological Examination: Mental Status: Awake and alert. Oriented to person, place, and time. Fluent. Comprehension intact. Affect appropriate. Cranial Nerves: II: pupils 3/3 to 2/2, III/IV/: Versions intact without nystagmus, no gaze preference. V: Facial sensation symmetric to light touch VII: Facial expression symmetric VIII: Hearing intact to voice XI: Shoulder shrug symmetric XII: Tongue midline Motor: Strength was symmetric and antigravity throughout. Pronator drift was absent. There were no abnormal movements. Coordination: Finger to nose and heel to lomeli were intact. Reflexes: Unable to assess over telemedicine Results & Data Vital Signs (Past 12 Hours) Vital Signs Temp Pulse Pulse Pulse Resp BP BP 11/06/22 07:33 36.8 C 91 H 16 95/49 L 11/06/22 05:54 68 11/06/22 05:27 36.9 C 76 20 118/63 11/06/22 05:09 11/06/22 03:24 84 19 11/06/22 03:24 109/54 L 11/06/22 03:25 78 11/06/22 03:24 87 18 109/54 L 11/06/22 01:55 72 20 118/78 11/06/22 01:30 67 17 129/72 11/06/22 01:00 70 15 124/74 11/06/22 00:30 84 14 132/78 11/06/22 01:00 76 15 124/74 11/06/22 00:00 51 L 14 120/65 11/05/22 23:30 80 15 126/78 11/05/22 23:13 65 22 133/86 11/05/22 23:32 69 11/05/22 23:26 11/05/22 23:13 77 15 133/86 11/05/22 22:55 36.7 C 85 13 138/66 Pulse Ox O2 Del Method O2 Flow Rate 11/06/22 07:33 97 Room Air 11/06/22 05:54 11/06/22 05:27 98 Room Air 11/06/22 05:09 Room Air 11/06/22 03:24 97 Room Air 11/06/22 03:24 11/06/22 03:25 11/06/22 03:24 92 Room Air 11/06/22 01:55 95 11/06/22 01:30 96 11/06/22 01:00 99 11/06/22 00:30 99 11/06/22 01:00 96 Room Air 11/06/22 00:00 100 Nasal Cannula 4 11/05/22 23:30 11/05/22 23:13 100 11/05/22 23:32 11/05/22 23:26 100 Nasal Cannula 4 11/05/22 23:13 100 Room Air 11/05/22 22:55 99 Room Air Laboratory Results Abnormal lab results 11/05/22 11/05/22 11/05/22 Range/Units 22:41 22:47 22:51 Hct (42.0-52.0) % Neut # (Auto) (1.40-6.50) K/uL Lymph # (Auto) (1.2-3.4) K/uL POC Potassium 3.1 L (3.3-5.0) mmol/L Potassium 3.1 L (3.5-5.1) mmol/L POC Total CO2 23 L (24-31) mmol/L Anion Gap 12 H (3-11) Glucose 128 H (70-99(Fasting)) mg/dl POC Glucose 122 H (70-99) mg/dl POC Glucose (other) 133 H (70-99) mg/dl POC Ioniz Calcium Ussy 0.96 L (1.12-1.32) mmol/l CSF WBC (0-5) CSF Total Protein (15-45) mg/dl 11/06/22 11/06/22 11/06/22 Range/Units 01:50 01:50 08:50 Hct 41.3 L (42.0-52.0) % Neut # (Auto) 6.66 H (1.40-6.50) K/uL Lymph # (Auto) 1.11 L (1.2-3.4) K/uL POC Potassium (3.3-5.0) mmol/L Potassium (3.5-5.1) mmol/L POC Total CO2 (24-31) mmol/L Anion Gap (3-11) Glucose (70-99(Fasting)) mg/dl POC Glucose (70-99) mg/dl POC Glucose (other) (70-99) mg/dl POC Ioniz Calcium Susy (1.12-1.32) mmol/l CSF WBC 162 H* (0-5) CSF Total Protein 102.3 H (15-45) mg/dl Diagnostic Findings MRI brain - Unremarkable
[2022-11-06 12:31] LABS: Albumin Globulin Ratio 2.3 (0.9-2); Albumin Level 4.3 gm/dl (3.4-5.0); BUN Creatinine Ratio 12.3 (10-20); Bilirubin,Total 0.7 mg/dl (0.2-1.0); Calcium 8.4 mg/dl (8.6-10.3); Creatinine Clr Calc Pharmacy 137.2 ml/min; Est GFR (African American) 133.5 ml/min; Est GFR (Non-African American) 115.1 ml/min; Globulin 1.9 gm/dl (2.5-4.0); Potassium 4.2 mmol/L (3.5-5.1); Total Protein 6.2 gm/dl (6.0-8.3)
--- NOTE | 2022-11-06 12:53 | Pharmacy Report ---
Pharmacy PK ABX Note - Date of Service November 06, 2022 - Assessment and Plan Assessment 37 year old M receiving empiric vancomycin, ceftriaxone, and acyclovir for treatment of meningitis. Pertinent microbiologic data includes: CSF (11/06) pending. Per neurology note, likely aseptic or viral meningitis; antibiotics can likely be discontinued. Awaiting ID consultation. CSF results: WBC 162, total protein 102, glucose 65 Day # 1 of antimicrobial therapy. Plan Vancomycin * Loading dose: 2000 mg IV x 1 * Maintenance dose: 1250 mg IV every 12 hours * Regimen is predicted to achieve target AUC/MEENAKSHI of 400-600 mg/L.hr * Will obtain vanco level if antibiotics are to be continued beyond 48 hours Ceftriaxone * 2 g IV q12h - appropriate to cover for meningitis indication Acyclovir * 760 mg IV q8h (10 mg/kg) - appropriate, no change Pharmacy will continue to follow and will adjust dose/frequency as necessary. Thank you. Pharmacy has transitioned to AUC monitoring for vancomycin. AUC/MEENAKSHI is the preferred PK/PD target and is associated with decreased risk of nephrotoxicity compared to traditional trough targets.
[2022-11-06] MEDS ORDERED: VANCOMYCIN HCL 1,250 MG in SODIUM CHLORIDE 0.9% 250 ML IV SCH (13:00)
[2022-11-06 13:26] LABS: Appearance Urine Cloudy (Clear); Bacteria Urine Automated Negative (Negative); Bilirubin Urine Negative (Negative); Blood Urine Negative (Negative); Color Urine Yellow; Epithelial Cell Urine Auto 20-30 /lpf (0-5); Glucose Urine UA Negative (Negative); Ketones Urine Negative (Negative); Leukocyte Esterase Urine Negative (Negative); Nitrite Urine Negative (Negative); Protein Urine Negative (Negative); RBC Urine Automated 0-4 /hpf (0-4); Specific Gravity Urine 1.019 (1.000-1.030); Urobilinogen Urine Negative (Negative); pH Urine 8.5 (4.5-7.5)
[2022-11-06 14:07] LABS: Amphetamines+Metham, Urine Neg (Neg); Barbiturates, Urine Neg (Neg); Benzodiazepine, Urine Neg (Neg); Cocaine, Urine Neg (Neg); MDMA (Ecstacy), Urine Neg (Neg); Methadone, Urine Neg (Neg); Opiate, Urine Neg (Neg); Phencyclidine, Urine Neg (Neg)
--- NOTE | 2022-11-06 15:36 | Hospitalist Progress Note ---
Date of Service November 06, 2022 Assessment & Plan (1) Meningitis: Plan: 37-year-old male with past medical history significant for BETZAIDA presents with severe headache, nausea, some numbness in the left side extremities which improved now, photophobia LP consistent with meningitis. Vital meningitis CSF WBC 162, CSF total protein 102. Lyme screen negative Most likely viral meningitis Isolation precautions Supportive care Empiric IV antibiotics with IV Vanco IV Rocephin and IV acyclovir CT head and MRI brain unremarkable Appreciate neurology input and recommendation Patient remains free from any symptoms Serological test of lumbar puncture fluid did not show any evidence of viral and/or bacterial infection Case discussed with Dr. Ward, ID specialist in [place]-he does not require any antibiotics and/or antiviral Be discharged home this afternoon Will have regular follow-up with the primary care doctor BETZAIDA Continue Zoloft DVT prophylaxis Lovenox Disposition Med telemetry Discharge home this afternoon Admission and Anticipated Discharge Date Admission Date: November 06, 2022 Subjective 11/06/2022 The patient was seen and examined in medical telemetry unit He was admitted with nonspecific neuro symptoms associated with photophobia, headache, nausea vomiting but no fever Been feeling much better this morning and above symptoms are gone Been ambulating without any symptoms and denies any more neurological symptoms Review of Systems Review of Systems: All systems reviewed and are unremarkable except as noted below Physical Exam Physical Exam: Sitting at the edge of the bed without any acute distress Constitutional: average body habitus; not ill appearing Eyes: PERRL, conjunctivae normal, anicteric sclerae No photophobia Neck: trachea midline, no thyromegaly No neck stiffness or pain Respiratory: no respiratory distress Auscultation: lungs clear to auscultation bilaterally Cardiovascular: Rate/Rhythm: regular rate and regular rhythm; not tachycardic Heart Sounds: normal S1 and normal S2; no murmur Extremities: no edema Gastrointestinal (Abdomen): Inspection/Auscultation: normal bowel sounds; abdomen not distended Percussion/Palpation: abdomen soft; abdomen nontender Musculoskeletal: No acute arthritis involving any joint Neurologic: normal touch/pain/proprioception, CN's II-XI intact bilaterally, deep tendon reflexes 2+ bilaterally and moves all extremities; no focal motor deficits and no meningeal signs No signs of meningitis and or meningism Psychiatric: A+Ox3, euthymic affect Lymphatic: no cervical or axillary lymphadenopathy Results & Data Results & Data Vital Signs (Past 12 Hours) Vital Signs Temp Pulse Pulse Pulse Resp BP Pulse Ox 11/06/22 15:22 36.9 C 65 16 113/70 95 11/06/22 08:00 11/06/22 06:02 75 11/06/22 11:16 36.8 C 66 16 99/50 L 95 11/06/22 07:33 36.8 C 91 H 16 95/49 L 97 11/06/22 05:54 68 11/06/22 05:27 36.9 C 76 20 118/63 98 11/06/22 05:09 O2 Del Method 11/06/22 15:22 Room Air 11/06/22 08:00 Room Air 11/06/22 06:02 11/06/22 11:16 Room Air 11/06/22 07:33 Room Air 11/06/22 05:54 11/06/22 05:27 Room Air 11/06/22 05:09 Room Air Laboratory Results Short CBC 11/05/22 11/06/22 Range/Units 22:41 08:50 WBC 5.41 8.31 (4.8-10.8) K/ul Hgb 15.9 14.5 (14.0-18.0) g/dl Hct 44.8 41.3 L (42.0-52.0) % Plt Count 158 141 (130-400) K/uL BMP 11/05/22 11/06/22 22:41 08:50 Sodium 140 139 Potassium 3.1 L 4.2 D Chloride 104 106 Carbon Dioxide 24 30 BUN 13 10 Creatinine 0.93 0.81 Glucose 128 H 140 H Calcium 9.4 8.4 L Liver Function 11/05/22 11/06/22 Range/Units 22:41 08:50 Total Bilirubin 0.9 0.7 (0.2-1.0) mg/dl AST 20 18 (13-39) U/L ALT 21 17 (7-52) U/L Alkaline Phosphatase 45 39 (34-104) U/L Albumin 4.8 4.3 (3.4-5.0) gm/dl Urine 11/06/22 Range/Units 12:30 Urine Color Yellow Urine Appearance Cloudy A (Clear) Urine pH 8.5 H (4.5-7.5) Ur Specific [place] 1.019 (1.000-1.030) Urine Protein Negative (Negative) Urine Glucose (UA) Negative (Negative) Medications Administered Current Inpatient Medications Enoxaparin Sodium (Enoxaparin Inj 40 Mg/0.4 Ml Syr) 40 mg SQ Q24H [facility] Stop: 12/07/22 07:59 Acetaminophen (Ofirmev) 1,000 mg in 100 mls @ 400 mls/hr IV Q8H PRN PRN Reason: Pain or Fever Stop: 11/09/22 05:26 Sodium Chloride (Nss 1000ml) 1,000 mls @ 125 mls/hr IV .Q8H [facility] Stop: 11/07/22 05:26 Last Infusion: 11/06/22 09:05 Dose: 125 mls/hr Multivitamins (Multivitamin Tab) 1 tab PO DAILY [facility] Stop: 12/06/22 08:59 Last Admin: 11/06/22 07:38 Dose: 1 tab Nitroglycerin (Nitroglycerin Sl 0.4 Mg/Tab Tab) 0.4 mg SL Q5M PRN PRN Reason: Chest Pain Stop: 12/06/22 05:26 Ondansetron HCl (Ondansetron Inj 2 Mg/Ml 2 Ml Vial) 4 mg IV Q6H PRN PRN Reason: Nausea Stop: 12/06/22 05:26 Sertraline HCl (Sertraline Hcl 50 Mg Tablet) 50 mg PO QAM [facility] Stop: 12/06/22 08:59 Last Admin: 11/06/22 07:38 Dose: 50 mg
--- NOTE | 2022-11-06 16:59 | Discharge Summary ---
Date of Service November 06, 2022 Admission HPI Per Admitting Provider 37-year-old male with past medical significant for BETZAIDA presents with headache nausea and left-sided numbness. Around 6:00 PM patient's symptoms of numbness in the left side initially in the left leg and then spreading into the upper extremity. Around 9 PM as per patient was having some slurred speech, confusion, nausea vomiting, no fevers, headaches were decided to come to the ER. Patient is currently having photophobia. Somewhat restless. Says has some neck stiffness. No earache or runny nose or sore throat or cough. No difficulty swallowing. As per he ate his dinner at 9 PM. No chest pain or shortness of breath. No abdominal pain. Normal bowel and bladder movements. Past medical history as mentioned above. Past surgical history none. Admission Exam Per Admitting Provider General- adult Head- atraumatic Eyes- PERRL, Photophobia present ENT- oropharynx clear Neck- No neck masses seen Lungs- clear to auscultation and percussion Heart- regular rhythm; no murmur, no gallop, no rub appreciated Abdomen- normal bowel sounds, soft, nontender, no masses or hepatosplenomegaly Extremities- no pretibial edema, no erythema. Neuro- alert, oriented x 3; PERRL, EOMI; no facial palsy; no dysarthria;obesy commands, moving extremities Skin- warm & dry Principal Diagnosis Viral meningitis Discharge Exam Sitting at the edge of the bed without any acute distress Constitutional average body habitus; not ill appearing Eyes PERRL, conjunctivae normal, anicteric sclerae Neck trachea midline, no thyromegaly Respiratory no respiratory distress Auscultation: lungs clear to auscultation bilaterally Cardiovascular Rate/Rhythm: regular rate and regular rhythm; not tachycardic Heart Sounds: normal S1 and normal S2; no murmur Extremities: no edema Gastrointestinal (Abdomen) Inspection/Auscultation: normal bowel sounds; abdomen not distended Percussion/Palpation: abdomen soft; abdomen nontender Neurologic normal touch/pain/proprioception, CN's II-XI intact bilaterally, deep tendon reflexes 2+ bilaterally and moves all extremities; no focal motor deficits and no meningeal signs Psychiatric A+Ox3, euthymic affect Lymphatic no cervical or axillary lymphadenopathy Discharge Data Allergies Allergy/AdvReac Type Severity Reaction Status Date / Time No Known Allergies Allergy Unverified 11/05/22 23:12 Consultations 11/06/22 03:48 ED Decision to Admit Stat 11/06/22 08:00 Consult Neurology Routine Ordered Studies 11/05/22 23:04 CT head/brain wo con Stat 11/06/22 01:58 MRI Brain [MR brain wo/w con] Stat Hospital Course (1) Meningitis: 37-year-old male with past medical history significant for BETZAIDA presents with severe headache, nausea, some numbness in the left side extremities which improved now, photophobia LP consistent with meningitis. Vital meningitis CSF WBC 162, CSF total protein 102. Lyme screen negative Most likely viral meningitis Isolation precautions Supportive care Empiric IV antibiotics with IV Vanco IV Rocephin and IV acyclovir CT head and MRI brain unremarkable Appreciate neurology input and recommendation Patient remains free from any symptoms Serological test of lumbar puncture fluid did not show any evidence of viral and/or bacterial infection Case discussed with Dr. Ward, ID specialist in [place]-he does not require any antibiotics and/or antiviral Be discharged home this afternoon Will have regular follow-up with the primary care doctor BETZAIDA Continue Zoloft DVT prophylaxis Lovenox Disposition Med telemetry Discharge home this afternoon Total Time Total Time Spent Total Time Spent (In Minutes): 35 minutes Discharge Plan Discharge Items Patient Disposition: Home - Self-Care Reason For Visit: MENINGITIS Discharge Diagnosis: Viral meningitis Condition on Discharge: Good Activity: Resume your previous activity Non-emergency contact: Primary Care Provider Call non-emergency contact if: you have any medication questions and your symptoms worsen Follow-up/Referrals: Nirmal Moore MD [Primary Care Provider] - (Your doctor's office will give you a call with an appointment within 7 days) Diet: Regular Addtl Attending Provider Instructions: Please try to drink more fluid Continue Tylenol and/or ibuprofen for headache if you have any Pending Studies at Discharge: No Stand-Alone Forms: [employer], Smoking Cessation Medications and DC Order Prescriptions: Continued multivitamin Tablet 1 tab PO DAILY aspirin 325 mg Tablet 650 mg PO BID PRN (Reason: .headache/pain) acetaminophen [Tylenol Extra Strength] 500 mg Tablet 1,000 mg PO Q6H PRN (Reason: .headaches/pain) naproxen sodium [Aleve] 220 mg Tablet 220 - 440 mg PO BID PRN (Reason: .headache/pain) sertraline 50 mg tablet 50 mg PO QAM cholecalciferol (vitamin D3) [Vitamin D3] 25 mcg (1,000 unit) Tablet 0 mcg PO DAILY Discharge Orders: Discharge Order (Routine); Ordered 11/06/22 Ordered By: Jessica Thorpe Admission Data Admit Date/Time: 11/06/22 04:31 Attending Provider: Jessica Thorpe Admit Provider: Juno Rodarte Primary Care Provider: Nirmal Moore Other Providers: Juno Rodarte Other Interventions: Discharge Summary Assessment (RN) Last Done: 11/06/22 16:09
--- NOTE | 2022-11-06 17:52 | Electrocardiogram Report ---
Test Reason : Blood Pressure : / mmHG Vent. Rate : 081 BPM Atrial Rate : 081 BPM P-R Int : 164 ms QRS Dur : 088 ms QT Int : 382 ms P-R-T Axes : 082 080 045 degrees QTc Int : 443 ms Normal sinus rhythm Possible Left atrial enlargement Nonspecific ST abnormality Abnormal ECG No previous ECGs available Confirmed by Ernst Manley ([id number]) on 11/06/2022 5:52:11 PM Referred By: REFERRED SELF Confirmed By:Bassam Manley
[2022-11-07] MEDS ORDERED: ENOXAPARIN INJ 40 MG/0.4 ML SYR SQ SCH (08:00)
== END 2022-11-06 16:27 | disposition home or self-care (01) | DRG 76 ==
LOC: ED 22:31 → 2W 11-06 04:31 → INTOOBSV 11-06 04:31 → 2W 11-06 05:09